=== PATIENT | male | born 1960 | race Asian ===

== ENCOUNTER 2019-04-03 15:10 | Emergency (ER) | payer MEDICAID ==
[~2019-04-03] VITALS: Ht 162.6 cm; Wt 60.1 kg
[2019-04-03 15:46] VITALS: BP 130/88
== END 2019-04-03 16:27 | disposition home or self-care (01) ==
LOC: ED 16:20
DX: I73.00 Raynaud's syndrome without gangrene (principal)
CPT/HCPCS: 99281